=== PATIENT | female | born 1975 | race American Indian/Alaskan Native ===

== ENCOUNTER → 2024-06-15 | Outpatient (CLI) | payer SELFPAY ==
[2024-06-23 08:37] LABS: HPV HIGH RISK BY TMA Not Detected; HPV SOURCE Not Provided
== END ==
LOC: LAB SHORT 15:53 → LAB 15:53
PROVIDERS: Nurse Practitioner Family
DX: N93.9 Abnormal uterine and vaginal bleeding, unspecified (principal)
CPT/HCPCS: 87624; G0123

== ENCOUNTER 2025-02-21 06:56 | Day surgery (SDC) | payer BC ==
[~2025-02-21] VITALS: Ht 172.7 cm; Wt 119.5 kg
[2025-02-21 08:19] VITALS: BP 147/79
--- NOTE | 2025-02-21 08:25 | NUR ---
Ambulatory in Day Surgery History, Chart, Medications and Allergies reviewed before start of procedure. Pre-Op teaching done. Pt verbalizes understanding. Patient States Post-Procedure ride home has been arranged.
--- NOTE | 2025-02-21 09:47 | NUR ---
02/21/25 0947 Rosalia Quiles History, Chart, Medications and Allergies reviewed before start of procedure. DR ALESIA RUSSELL ANESTHESIA SEE RECORDS
[2025-02-21 10:38] VITALS: BP 112/67
--- NOTE | 2025-02-21 10:45 | NUR ---
Discharge instructions reviewed with patient. Patient verbalizes understanding. Copy given to patient to take home. Patient States Post-Procedure ride home has been arranged. Discharged via wheelchair to private car for ride home.
== END 2025-02-21 10:53 | disposition home or self-care (01) ==
LOC: ORSCMMR 06:56 → ORD 09:00 → ORSCMMR 10:00 → ORD 10:00 → ORSCMMR 10:53
PROVIDERS: Internal Medicine Gastroenterology
PROC: 0DBP8ZX Excision of Rectum, Via Natural or Artificial Opening Endoscopic, Diagnostic (ICD-10-PCS; principal; 2025-02-21 10:00)
DX: Z12.11 Encounter for screening for malignant neoplasm of colon (principal); K63.5 Polyp of colon; K64.8 Other hemorrhoids; G47.30 Sleep apnea, unspecified; E66.01 Morbid (severe) obesity due to excess calories; Z68.41 Body mass index [BMI] 40.0-44.9, adult
CPT/HCPCS: 88305; J2704; J7120